=== PATIENT | female | born 1950 | race Caucasian/White ===

== ENCOUNTER 2019-09-22 15:27 | Emergency (ER) | payer MEDICARE, BC ==
--- NOTE | 2019-09-22 16:07 | ED ---
Neurological HPI - HPI Summary HPI Summary: The patient is a 69 y/o female presenting to [facility] accompanied by daughter with a chief complaint of slurred speech since last night. She has been dealing with a lot of stress over the last few days as her recently , so she hasnt been sleeping well. Last night, the patients son noticed that she had some slurred speech, and her daughter noticed today as well. Her daughter also observed a change with some difficulty processing information and motor movements while writing her name. She doesnt have any other complaints at this time. She is not in any pain. She has a history of CVAs in the past with the last one occurring in 2014. She is not currently on Plavix 2/2 thrombocytopenia and anemia. PMHx: anemia, HTN, breast cancer (sees Dr. Huerta). Nonsmoker, no EtOH , no substance use. Medications reviewed. Allergies noted. - History of Current Complaint Chief Complaint: EDNeurologicalDeficit Stated Complaint: SLURRED SPEECH PER DAUGHTER Time Seen by Provider: 09/22/19 15:59 Hx Obtained From: Patient, Family/[employer] Operator - daughter Onset/Duration: Started hours ago - last night, Still Present Timing: Sudden Onset Onset Severity: Mild Current Severity: Mild Pain Intensity: 0 Pain Scale Used: 0-10 Numeric Character: Motor Weakness, Impaired Speech, Other: - aphasia Aggravating: Stress Alleviating: Nothing Associated Signs and Symptoms: Positive: Impaired Speech. Negative: Fever Related Hx: Anticoagulants - Plavix - Additional Pertinent History Primary Care Physician: [id number] - Allergy/Home Medications Allergies/Adverse Reactions: Allergies Allergy/AdvReac Type Severity Reaction Status Date / Time Adhesive Tape Allergy Rash Verified 06/27/14 10:05 Home Medications: Home Medications Calcium Carb/Vit D3/Minerals [Calcium 600+D Plus [place]] 1 tab PO DAILY [History Confirmed 09/22/19] Multivitamins/Minerals TAB* [Theragran/minerals TAB*] 1 tab PO DAILY 09/22/19 [ History Confirmed 09/22/19] Pravastatin (NF) [Pravachol (NF)] 80 mg PO DAILY 09/22/19 [History Confirmed ] Ubidecarenone [Co Q-10] 400 mg PO DAILY 09/22/19 [History Confirmed 09/22/19] PMH/Surg Hx/FS Hx/Imm Hx Endocrine/Hematology History: Reports: Hx Anemia - ON PLAVIX Denies: Hx Diabetes Cardiovascular History: Reports: Hx Hypertension Denies: Hx Congestive Heart Failure, Hx Pacemaker/ICD Comment Only: Other Cardiovascular Problems/Disorders - H/O DEVELOPMENT OF CHF WHILE ON CHEMO PER PT. Respiratory History: Denies: Hx Chronic Obstructive Pulmonary Disease (COPD) History: Reports: Hx Kidney Infection - A YOUNG CHILD Denies: Hx Dialysis Musculoskeletal History: Denies: Hx Rheumatoid Arthritis, Hx Back Problems, Hx Osteoporosis Sensory History: Denies: Hx Contacts or Glasses, Hx Hearing Aid Opthamlomology History: Denies: Hx Contacts or Glasses Neurological History: Reports: Hx CVA - 2014 Denies: Hx Dementia, Hx Seizures, Other Neuro Impairments/Disorders Psychiatric History: Denies: Hx Panic Disorder - Cancer History Cancer Type, Location and Year: BREAST Hx Chemotherapy: Yes Hx Radiation Therapy: No - Surgical History Surgical History: Yes Surgery Procedure, Year, and Place: BILATERAL MASTECTOMY-2008. AXILLARY LYMPH NODES REMOVED LEFT SIDE. RECONSTRUCTIVE SURGERY. 25 YEARS AGO- TUBAL LIGATION , wrist fracture. Hx Anesthesia Reactions: No Infectious Disease History: No Infectious Disease History: Denies: Traveled Outside the [place] in Last 30 Days - Family History Known Family History: Positive: Hypertension - Social History Alcohol Use: None Hx Substance Use: No Substance Use Type: Reports: None Hx Tobacco Use: No Smoking Status (MU): Never Smoked Tobacco Have You Smoked in the Last Year: No Review of Systems Negative: Fever Neurological: Other - aphasia, motor changes Positive: Slurred Speech All Other Systems Reviewed And Are Negative: Yes Physical Exam - Summary Physical Exam Summary: Constitutional: Well-developed, Well-nourished, Alert. (-) Distressed Skin: Warm, Dry HENT: Normocephalic; Atraumatic Eyes: Conjunctiva normal Neck: Musculoskeletal ROM normal neck. (-) JVD, (-) Nuchal rigidity Cardio: Rhythm regular, rate normal, Heart sounds normal; Intact distal pulses; Radial pulses are 2+ and symmetric. (-) Murmur Pulmonary/Chest wall: Effort normal. (-) Respiratory distress, (-) Wheezes, (-) Rales Abd: Soft. (-) Tenderness, (-) Distension, (-) Guarding, (-) Rebound Musculoskeletal: Lymph edema of the left arm, (-) Edema of the lower extremities , Status-post mastectomy Lymph: (-) Cervical adenopathy Neuro: Alert, PERRL, Oriented x3, Strength normal, Cranial nerves II-XII are grossly intact. SILT, Strength 5/5 BUE and BLE, (-) Dysmetria, (-) Nystagmus, ambulates w steady gait. Psych: Mood and affect Normal Triage Information Reviewed: Yes Vital Signs On Initial Exam: Initial Vitals Temp Pulse Resp BP Pulse Ox 97.0 F 90 16 146/63 95 09/22/19 15:36 09/22/19 15:36 09/22/19 15:36 09/22/19 15:36 09/22/19 15:36 Vital Signs Reviewed: Yes - Throckmorton Coma Scale Best Eye Response: 4 - Spontaneous Best Motor Response: 6 - Obeys Commands Best Verbal Response: 5 - Oriented Coma Scale Total: 15 Procedures - Sedation Patient Received Moderate/Deep Sedation with Procedure: No Diagnostics - Vital Signs Vital Signs Temp Pulse Resp BP Pulse Ox 09/22/19 15:36 97.0 F 90 16 146/63 95 - Laboratory Result Diagrams: 09/22/19 16:22 09/22/19 16:22 Lab Statement: Any lab studies that have been ordered have been reviewed, and results considered in the medical decision making process. - Radiology CXR Radiology Interpretation Completed By: Radiologist Summary of Radiographic Findings: Impression: No active cardiopulmonary disease is noted. ED physician has reviewed this report. - CT Brain CT CT Interpretation Completed By: Radiologist Summary of CT Findings: Impression: Lacunar infarct right caudate nucleus and right basal ganglia. No intracranial mass or hemorrhage is noted. No changes noted since August 01, 2015. ED physician has reviewed this report. NIH Scale - NIH Scale Level of Consciousness: Alert/Keenly Responsive Ask Patient the Month and His/Her Age: Both Correct Ask Pt to Open/Close Eyes and Rest Room Maid/Release Non-Paretic Hand: Both Correctly Best Gaze (Only Horizontal Eye Movement): Normal Visual Field Testing: No Visual Loss Facial Paresis-Pt to Smile & Close Eyes or Grimace Symmetry: Normal/Symmetrical Motor Function - Right Arm: No Drift-Holds 10 Seconds Motor Function - Left Arm: No Drift-Holds 10 Seconds Motor Function - Right Leg: No Drift-Holds 10 Seconds Motor Function - Left Leg: No Drift-Holds 10 Seconds Limb Ataxia-Must be out of Proportion to Weakness Present: Absent Sensory (Use Pinprick to Test Arms/Legs/Trunk/Face): Normal Best Language (Describe Picture, Name Items): No Aphasia Dysarthria (Read Several Words): Normal Extinction and Inattention: No Abnormality Total Score: 0 Re-Evaluation - Re-Evaluation First Eval Re-Evaluation Time: 18:13 Comment: We discussed results thus far and consultation with Dr. Merrill concerning admission. She would not like to stay for further treatment. She will leave AMA. Course/Dx - Course Course Of Treatment: 69 y/o F w hx CVA, BRCA, anemia p/w slurred speech and cognitive slowing (resolved). - normal neuro exam. CT head w/o acute pathology. Patient does become hypoxic to 90% when falling asleep, daughter will follow up w PCP regarding sleep test. - regarding dysarthria and episode of confusion/slowing, d/w daughter recommendations to stay for further w/u (ie MRI, echo). Patient and daughter decline. They are both under significant stress 2/2 passing of patients . They understand that she is at risk for TIA and stroke given that she is not on plavix or aspirin due to thrombocytopenia. They are aware of the risks of leaving but wish to do so anways. I offered to do a CTA here before discharge which they decline. They will return for recurrent or worsenng symptoms and will follow up w her PCP. - Diagnoses Provider Diagnoses: Slurred speech - Physician Notifications Discussed Care Of Patient With: Sean Merrill - neurology Time Discussed With Above Provider: 18:10 Instructed by Provider To: Other - I discussed the patients case with Dr. Merrill, who recommends she stay overnight for a stroke workup including a MRI. I spoke with COLBY Cano, at 1820 from oncology, who suggests that we refrain from placing the patient on baby Aspirin as her platelets are low. Discharge ED - Sign-Out/Discharge Documenting (check all that apply): Patient Departure - Patient will leave AMA. - Discharge Plan Condition: Stable Disposition: AGAINST MEDICAL ADVICE Patient Education Materials: Transient Ischemic Attack (ED) Referrals: Teresita Serra MD [Primary Care Provider] - Sean Merrill MD [Medical Doctor] - Additional Instructions: You were seen in the emergency department for slurred speech. You possibly had a stroke. We understand you would like to leave, but if you reconsider please return to the ER. Please follow up with a neurologist. Please follow up with your primary care doctor in the next 2-3 days and return to the emergency department for new weakness/numbness, confusion worsening or concerning symptoms. It was a pleasure taking care of you today. - Billing Disposition and Condition Condition: STABLE Disposition: Against Medical Advice - Attestation Statements Document Initiated by Gutierrez: Yes Documenting Scribe: Courtney Mccabe Provider For Whom Gutierrez is Documenting (Include Credential): Dr. Kojo Flores MD Scribe Attestation: I, Courtney Mccabe, scribed for Dr. Kojo Flores MD on 09/24/19 at 1433. Scribe Documentation Reviewed: Yes Provider Attestation: The documentation as recorded by the Courtney chong accurately reflects the service I personally performed and the decisions made by me, Dr. Kojo Flores MD Status of Scribe Document: Viewed
[2019-09-22 16:31] LABS: ABS Lymphocytes 1.1 10^3/ul (1.0-4.8); ABS Monocytes 0.2 10^3/ul (0-0.8); ABS Neutrophils 1.2 10^3/ul (1.5-7.7); Eosinophil % 1.3 %; Hematocrit 24 % (35-47); Hemoglobin 7.9 g/dL (12.0-16.0); Lymphocyte % 42.3 %; Mean Corpuscular HGB Conc 33 g/dL (31-36); Mean Corpuscular Hemoglobin 28 pg (27-31); Mean Corpuscular Volume 84 fL (80-97); Mean Platelet Volume 7.6 fL (7.4-10.4); Nucleated Red Blood Cells % 0.2; Platelet Count 44 10^3/uL (150-450); Red Cell Distribution Width 23 % (10-15); White Blood Count 2.5 10^3/uL (3.5-10.8)
[2019-09-22 17:00] LABS: Albumin 4.2 g/dL (3.2-5.2); Albumin/Globulin Ratio 1.4 (1-3); Calcium 9.5 mg/dL (8.6-10.3); EGFR African American 81.8 (>60); EGFR Non-African American 67.6 (>60); Globulin 3.1 g/dL (2-4); Potassium 3.7 mmol/L (3.5-5.0); Total Bilirubin 0.4 mg/dL (0.2-1.0); Total Protein 7.3 g/dL (6.4-8.9)
[2019-09-22] MEDS ORDERED: Aspirin 81 mg CHEW TAB* 81 MG TAB.CHEW PO ONE (18:16)
[2019-09-22 18:37] VITALS: BP 113/69
== END 2019-09-22 18:29 | disposition left against medical advice (07) ==
LOC: ED 15:27
DX: R47.81 Slurred speech (principal); I10 Essential (primary) hypertension; D64.9 Anemia, unspecified; Z86.73 Personal history of transient ischemic attack (TIA), and cerebral infarction without residual deficits; Z85.3 Personal history of malignant neoplasm of breast; Z79.899 Other long term (current) drug therapy
CPT/HCPCS: 36415; 70450; 71046; 80053; 85025; 99283

== ENCOUNTER 2019-12-31 21:21 | Emergency (ER) | payer MEDICARE, BC ==
--- OUTSIDE RECORDS SUMMARY | 2019-12-31 21:34 | XMS REPORT | Continuity of Care Document ---
:1950 External Reference #:[id number] Author Name Teresita Serra M.D. (transmitted by agent of provider Monika Hoyos) Address [address] [place] [address] Care Team Providers Name Role Phone [place] MD - Hematology & Care Team Information Behavioral Health Tech [phone] Oncology Candi Oh - Power Originator Care Team Information Behavioral Health Tech [phone] [facility] - Physical Care Team Information Behavioral Health Tech Therapist Problems Active Problems Provider Date Malignant neoplasm of female breast Teresita Serra M.D. Onset: 2012 Pure hypercholesterolemia Teresita Serra M.D. Onset: 02/13/2013 Essential hypertension Teresita Serra M.D. Onset: 02/13/2013 Impaired fasting glycemia Teresita Serra M.D. Onset: 02/13/2013 Social History Type Date Description Comments Sex Unknown Tobacco Use Start: Unknown Never Smoked Cigarettes ETOH Use Occasionally consumes less than one per week alcohol Recreational Drug Use Denies Drug Use Tobacco Use Start: Unknown Patient has never smoked Seat Belt/Car Seat always uses seat belt Allergies, Adverse Reactions, Alerts Description No Known Drug Allergies Medications Active Medications SIG Qnty Indications Ordering Date Provider Irbesartan 1 by mouth everyday 30tabs Teresita Arguelles 12/23/2019 75mg for hypertension (mary ellen Serra M.D. Tablets replace lisinopril) Co Q-10 1 PO Qday Teresita Arguelles 09/26/2016 400mg Fernanda Serra Capsules Vitamin D3 2 PO Qday Teresita Arguelles 05/19/2013 1000Unit Fernanda Serra Capsules Vitamins Multiple Teresita Arguelles 11/13/2004 Fernanda Serra Tablets Calcium With 1 PO Qday Teresita Arguelles 11/13/2004 Vitamin D Fernanda Serra 600mg Pravastatin Sodium Take One Tablet By 90tabs Teresita Arguelles Mouth AT Bedtime Fernanda Serra 80mg Tablets Aspirin 81 Low Dose 1 by mouth every day Unknown 81mg Chewtabs Medications Administered in Office Medication SIG Qnty Indications Ordering Provider Date TB,Intradermal (PPD, [facility]) [facility] 06/03/2012 Injection Immunizations CPT Code Status Date Vaccine Lot # [id number] Given 05/26/2019 [place] [id number] Given 09/22/2017 Prevnar-13 Pneumococcal Conjugate Vaccine [id number] 48465 Given 05/14/2017 Influenza Virus Vaccine, Quadrivalent, 3 Yr > Quad, Preserv Free 29104 Given 09/26/2016 Tdap (Adacel) [id number] Given 05/14/2016 Influenza Virus Vaccine, Quadrivalent, 3 Yr > Quad, Preserv Free 90914 Given 06/07/2015 Influenza Virus Vaccine, Quadrivalent, 3 Yr > Quad, Preserv Free Vital Signs Date Vital Result Comment 10/08/2019 11:12am Weight 192.50 lb Weight 87.318 kg BP Systolic 118 mmHg BP Diastolic 60 mmHg Heart Rate 86 /min Body Temperature 97.6 F Respiratory Rate 16 /min Height 64 inches 5'4" BMI (Body Mass Index) 33.0 kg/m2 O2 % BldC Oximetry 95 % 06/15/2019 12:00pm Weight 203.00 lb Weight 92.081 kg BP Systolic 114 mmHg BP Diastolic 62 mmHg Heart Rate 78 /min Body Temperature 97.7 F Respiratory Rate 17 /min Height 63.5 inches 5'3.50" BMI (Body Mass Index) 35.4 kg/m2 O2 % BldC Oximetry 98 % Results Test Acquired Date Facility Test Result H/L Range Note Comp Metabolic 12/20/2019 [facility] Sodium 134 mmol/ L Low 135-145 Panel [phone] Potassium 3.7 mmol/L Normal 3.5-5.0 Chloride 99 mmol/L Low 101-111 Co2 Carbon Dioxide 25 mmol/L Normal 22-32 Anion Gap 10 mmol/L Normal 2-11 Glucose 138 mg/dL High 70-100 Blood Urea Nitrogen 19 mg/dL Normal 6-24 Creatinine 0.83 mg/dL Normal 0.51-0.95 BUN/Creatinine Ratio 22.9 High 8-20 Calcium 9.4 mg/dL Normal 8.6-10.3 Total Protein 6.9 g/dL Normal 6.4-8.9 Albumin 3.8 g/dL Normal 3.2-5.2 Globulin 3.1 g/dL Normal 2-4 Albumin/Globulin Ratio 1.2 Normal 1-3 Total Bilirubin 1.10 mg/dL High 0.2-1.0 Alkaline Phosphatase 78 U/L Normal 34-104 Alt 19 U/L Normal 7-52 Ast 22 U/L Normal 13-39 Egfr Non- 68.6 >60 Egfr 83.0 >60 1 CBC Auto 12/20/2019 [facility] White Blood 3.4 10^3/ uL Low 3.5-10.8 Diff [phone] Count Red Blood Count 2.40 10^6/uL Low 3.70-4.87 Hemoglobin 6.9 g/dL Low 12.0-16.0 Hematocrit 21 % Low 35-47 Mean Corpuscular Volume 85 fL Normal 80-97 Mean Corpuscular Hemoglobin 29 pg Normal 27-31 Mean Corpuscular HGB Conc 34 g/dL Normal 31-36 Red Cell Distribution Width 22 % High 10-15 Abs Neutrophils 2.0 10^3/uL Normal 1.5-7.7 Abs Lymphocytes 1.0 10^3/uL Normal 1.0-4.8 Abs Monocytes 0.3 10^3/uL Normal 0-0.8 Abs Eosinophils 0.0 10^3/uL Normal 0-0.6 Abs Basophils 0.0 10^3/uL Normal 0-0.2 Abs Nucleated RBC 0.0 10^3/uL Granulocyte % 60.2 % Lymphocyte % 29.8 % Monocyte % 7.8 % Eosinophil % 1.1 % Basophil % 1.1 % Nucleated Red Blood Cells % 0.8 Platelet Count 11 10^3/uL Low 150-450 2 Mean Platelet Volume 6.6 fL Low 7.4-10.4 Manual 12/20/2019 [facility] Immature 5.0 % Normal 0-9 Differential [phone] Granulocytes Neutrophil % 62.0 % Band % 3.0 % Normal 0-8 Lymphocytes % 25.0 % Monocytes % 4.0 % Eosinophils % 2.0 % Basophil % 1.0 % Variant Lymph % 1.0 % Normal 0-6 Metamyelocytes % 1.0 % Normal 0-2 Myelocytes % 1.0 % Normal 0-1 Nucleated Red Blood Cells/100 2.0 High 0-0 Anisocytosis 2+ Tear Drop Cells 2+ Elliptocyte 1+ Type & Screen 12/20/2019 [facility] Patient Blood O Positive [phone] Type Antibody Screen NEGATIVE Laboratory test 12/20/2019 [facility] Packed Cells SEE RESULTS 3 finding [phone] BELO <SEE NOTE> Comp Metabolic 11/29/2019 [facility] Sodium 135 mmol/ L Normal 135-1 Panel [phone] Potassium 3.8 mmol/L Normal 3.5-5.0 Chloride 101 mmol/L Normal 101-111 Co2 Carbon Dioxide 25 mmol/L Normal 22-32 Anion Gap 9 mmol/L Normal 2-11 Glucose 120 mg/dL High 70-100 Blood Urea Nitrogen 16 mg/dL Normal 6-24 Creatinine 0.77 mg/dL Normal 0.51-0.95 BUN/Creatinine Ratio 20.8 High 8-20 Calcium 9.9 mg/dL Normal 8.6-10.3 Total Protein 7.3 g/dL Normal 6.4-8.9 Albumin 3.8 g/dL Normal 3.2-5.2 Globulin 3.5 g/dL Normal 2-4 Albumin/Globulin Ratio 1.1 Normal 1-3 Total Bilirubin 0.50 mg/dL Normal 0.2-1.0 Alkaline Phosphatase 66 U/L Normal 34-104 Alt 17 U/L Normal 7-52 Ast 17 U/L Normal 13-39 Egfr Non- 74.8 >60 Egfr 90.5 >60 4 CBC Auto 11/29/2019 [facility] White Blood 1.8 10^3/ uL Low 3.5-10.8 Diff [phone] Count Red Blood Count 2.92 10^6/uL Low 3.70-4.87 Hemoglobin 8.3 g/dL Low 12.0-16.0 Hematocrit 25 % Low 35-47 Mean Corpuscular Volume 84 fL Normal 80-97 Mean Corpuscular Hemoglobin 28 pg Normal 27-31 Mean Corpuscular HGB Conc 34 g/dL Normal 31-36 Red Cell Distribution Width 21 % High 10-15 Platelet Count 70 10^3/uL Low 150-450 5 Mean Platelet Volume 6.7 fL Low 7.4-10.4 Abs Neutrophils 0.7 10^3/uL Low 1.5-7.7 Abs Lymphocytes 1.0 10^3/uL Normal 1.0-4.8 Abs Monocytes 0.1 10^3/uL Normal 0-0.8 Abs Eosinophils 0.0 10^3/uL Normal 0-0.6 Abs Basophils 0.0 10^3/uL Normal 0-0.2 Abs Nucleated RBC 0.0 10^3/uL Granulocyte % 38.1 % Lymphocyte % 54.0 % Monocyte % 4.8 % Eosinophil % 1.6 % Basophil % 1.5 % Nucleated Red Blood Cells % 0.8 Manual 11/29/2019 [facility] Immature 2.0 % Normal 0-9 Differential [phone] Granulocytes Neutrophil % 42.0 % Lymphocytes % 51.0 % Monocytes % 0.0 % Eosinophils % 3.0 % Basophil % 1.0 % Variant Lymph % 1.0 % Normal 0-6 Myelocytes % 2.0 % High 0-1 Nucleated Red Blood Cells/100 1.0 High 0-0 Abs Neutrophils 0.8 10^3/uL Low 1.5-7.7 Abs Lymphocytes 0.9 10^3/uL Low 1.0-4.8 Abs Monocytes 0.0 10^3/uL Normal 0-0.8 Abs Eosinophils 0.1 10^3/uL Normal 0-0.6 Abs Basophils 0.0 10^3/uL Normal 0-0.2 Anisocytosis 2+ Laboratory test 11/22/2019 [facility] Packed Cells SEE RESULTS 6 finding [phone] BELO <SEE NOTE> Type & Screen 11/22/2019 [facility] Patient Blood O Positive [phone] Type Antibody Screen NEGATIVE CBC Auto 11/22/2019 [facility] White Blood 1.5 10^3/ uL Low 3.5-10.8 Diff [phone] Count Red Blood Count 2.71 10^6/uL Low 3.70-4.87 Hemoglobin 7.6 g/dL Low 12.0-16.0 Hematocrit 23 % Low 35-47 Mean Corpuscular Volume 85 fL Normal 80-97 Mean Corpuscular Hemoglobin 28 pg Normal 27-31 Mean Corpuscular HGB Conc 33 g/dL Normal 31-36 Red Cell Distribution Width 22 % High 10-15 7 Platelet Count 82 10^3/uL Low 150-450 Mean Platelet Volume 7.3 fL Low 7.4-10.4 Abs Neutrophils 0.5 10^3/uL Low 1.5-7.7 8 Abs Lymphocytes 0.9 10^3/uL Low 1.0-4.8 Abs Monocytes 0.1 10^3/uL Normal 0-0.8 Abs Eosinophils 0.0 10^3/uL Normal 0-0.6 Abs Basophils 0.0 10^3/uL Normal 0-0.2 Abs Nucleated RBC 0.0 10^3/uL Granulocyte % 34.5 % Lymphocyte % 57.1 % Monocyte % 6.2 % Eosinophil % 1.0 % Basophil % 1.2 % Nucleated Red Blood Cells % 1.2 Comp Metabolic 11/22/2019 [facility] Sodium 136 mmol/ L Normal 135-145 Panel [phone] Potassium 4.0 mmol/L Normal 3.5-5.0 Chloride 101 mmol/L Normal 101-111 Co2 Carbon Dioxide 27 mmol/L Normal 22-32 Anion Gap 8 mmol/L Normal 2-11 Glucose 120 mg/dL High 70-100 Blood Urea Nitrogen 15 mg/dL Normal 6-24 Creatinine 0.78 mg/dL Normal 0.51-0.95 BUN/Creatinine Ratio 19.2 Normal 8-20 Calcium 10.1 mg/dL Normal 8.6-10.3 Total Protein 7.6 g/dL Normal 6.4-8.9 Albumin 3.9 g/dL Normal 3.2-5.2 Globulin 3.7 g/dL Normal 2-4 Albumin/Globulin Ratio 1.1 Normal 1-3 Total Bilirubin 0.70 mg/dL Normal 0.2-1.0 Alkaline Phosphatase 66 U/L Normal 34-104 Alt 21 U/L Normal 7-52 Ast 19 U/L Normal 13-39 Egfr Non- 73.7 >60 Egfr 89.1 >60 9 CBC Auto 11/15/2019 [facility] White Blood 1.7 10^3/ uL Low 3.5-10.8 Diff [phone] Count Red Blood Count 2.37 10^6/uL Low 3.70-4.87 Hemoglobin 6.8 g/dL Low 12.0-16.0 Hematocrit 20 % Low 35-47 Mean Corpuscular Volume 84 fL Normal 80-97 Mean Corpuscular Hemoglobin 29 pg Normal 27-31 Mean Corpuscular HGB Conc 34 g/dL Normal 31-36 Red Cell Distribution Width 22 % High 10-15 Platelet Count 47 10^3/uL Low 150-450 Mean Platelet Volume 7.8 fL Normal 7.4-10.4 Abs Neutrophils 0.6 10^3/uL Low 1.5-7.7 Abs Lymphocytes 1.0 10^3/uL Normal 1.0-4.8 Abs Monocytes 0.1 10^3/uL Normal 0-0.8 Abs Eosinophils 0.0 10^3/uL Normal 0-0.6 Abs Basophils 0.0 10^3/uL Normal 0-0.2 Abs Nucleated RBC 0.0 10^3/uL Granulocyte % 35.7 % Lymphocyte % 59.4 % Monocyte % 3.5 % Eosinophil % 0.7 % Basophil % 0.7 % Nucleated Red Blood Cells % 0.6 Manual Differential 11/15/2019 [facility] Neutrophil % 32.0 % [phone] Lymphocytes % 61.0 % Monocytes % 4.0 % Variant Lymph % 3.0 % Normal 0-6 Nucleated Red Blood Cells/100 1.0 High 0-0 Macrocytosis 1+ Microcytosis 2+ Hypochromasia 2+ Polychromasia 1+ Laboratory test 11/15/2019 [facility] Pathologist ( SEE NOTE) 10 finding [phone] Review Type & Screen 11/15/2019 [facility] Patient Blood O Positive [phone] Type Antibody Screen NEGATIVE Laboratory test 11/15/2019 [facility] Packed SEE RESULTS 11 finding [phone] Cells BELO <SEE NOTE> Comp Metabolic 11/01/2019 [facility] Sodium 136 mmol/ L Normal 135-1 Panel [phone] Potassium 3.7 mmol/L Normal 3.5-5.0 Chloride 102 mmol/L Normal 101-111 Co2 Carbon Dioxide 26 mmol/L Normal 22-32 Anion Gap 8 mmol/L Normal 2-11 Glucose 149 mg/dL High 70-100 Blood Urea Nitrogen 16 mg/dL Normal 6-24 Creatinine 0.77 mg/dL Normal 0.51-0.95 BUN/Creatinine Ratio 20.8 High 8-20 Calcium 9.6 mg/dL Normal 8.6-10.3 Total Protein 7.3 g/dL Normal 6.4-8.9 Albumin 4.0 g/dL Normal 3.2-5.2 Globulin 3.3 g/dL Normal 2-4 Albumin/Globulin Ratio 1.2 Normal 1-3 Total Bilirubin 0.50 mg/dL Normal 0.2-1.0 Alkaline Phosphatase 81 U/L Normal 34-104 Alt 15 U/L Normal 7-52 Ast 18 U/L Normal 13-39 Egfr Non- 74.8 >60 Egfr 90.5 >60 12 CBC Auto 11/01/2019 [facility] White Blood 2.5 10^3/ uL Low 3.5-10.8 Diff [phone] Count Red Blood Count 3.00 10^6/uL Low 3.70-4.87 Hemoglobin 8.7 g/dL Low 12.0-16.0 Hematocrit 25 % Low 35-47 Mean Corpuscular Volume 83 fL Normal 80-97 Mean Corpuscular Hemoglobin 29 pg Normal 27-31 Mean Corpuscular HGB Conc 35 g/dL Normal 31-36 Red Cell Distribution Width 22 % High 10-15 Platelet Count 43 10^3/uL Low 150-450 13 Mean Platelet Volume 7.9 fL Normal 7.4-10.4 Abs Neutrophils 1.2 10^3/uL Low 1.5-7.7 Abs Lymphocytes 1.2 10^3/uL Normal 1.0-4.8 Abs Monocytes 0.1 10^3/uL Normal 0-0.8 Abs Eosinophils 0.1 10^3/uL Normal 0-0.6 Abs Basophils 0.0 10^3/uL Normal 0-0.2 Abs Nucleated RBC 0.0 10^3/uL Granulocyte % 45.4 % Lymphocyte % 47.2 % Monocyte % 4.0 % Eosinophil % 2.1 % Basophil % 1.3 % Nucleated Red Blood Cells % 0.2 Laboratory test 10/25/2019 [facility] Packed Cells SEE RESULTS 14 finding [phone] BELO <SEE NOTE> Type & Screen 10/25/2019 [facility] Patient Blood O Positive [phone] Type Antibody Screen NEGATIVE CBC Auto 10/25/2019 [facility] White Blood 2.4 10^3/ uL Low 3.5-10.8 Diff [phone] Count Red Blood Count 2.59 10^6/uL Low 3.70-4.87 Hemoglobin 7.2 g/dL Low 12.0-16.0 Hematocrit 22 % Low 35-47 Mean Corpuscular Volume 84 fL Normal 80-97 Mean Corpuscular Hemoglobin 28 pg Normal 27-31 Mean Corpuscular HGB Conc 34 g/dL Normal 31-36 Red Cell Distribution Width 24 % High 10-15 15 Platelet Count 44 10^3/uL Low 150-450 16 Mean Platelet Volume 7.9 fL Normal 7.4-10.4 Abs Neutrophils 1.2 10^3/uL Low 1.5-7.7 Abs Lymphocytes 1.0 10^3/uL Normal 1.0-4.8 Abs Monocytes 0.2 10^3/uL Normal 0-0.8 Abs Eosinophils 0.0 10^3/uL Normal 0-0.6 Abs Basophils 0.0 10^3/uL Normal 0-0.2 Abs Nucleated RBC 0.0 10^3/uL Granulocyte % 50.4 % Lymphocyte % 40.5 % Monocyte % 7.2 % Eosinophil % 1.5 % Basophil % 0.4 % Nucleated Red Blood Cells % 0.2 Comp Metabolic 10/25/2019 [facility] Sodium 134 mmol/ L Low 135-145 Panel [phone] Potassium 4.0 mmol/L Normal 3.5-5.0 Chloride 99 mmol/L Low 101-111 Co2 Carbon Dioxide 28 mmol/L Normal 22-32 Anion Gap 7 mmol/L Normal 2-11 Calcium 10.0 mg/dL Normal 8.6-10.3 Albumin 4.3 g/dL Normal 3.2-5.2 Total Bilirubin 0.60 mg/dL Normal 0.2-1.0 Glucose 120 mg/dL High 70-100 Blood Urea Nitrogen 17 mg/dL Normal 6-24 Creatinine 0.76 mg/dL Normal 0.51-0.95 BUN/Creatinine Ratio 22.4 High 8-20 Total Protein 7.7 g/dL Normal 6.4-8.9 Globulin 3.4 g/dL Normal 2-4 Albumin/Globulin Ratio 1.3 Normal 1-3 Alkaline Phosphatase 83 U/L Normal 34-104 Alt 13 U/L Normal 7-52 Ast 19 U/L Normal 13-39 Egfr Non- 75.9 >60 Egfr 91.8 >60 17 CBC Auto 09/30/2019 [facility] White Blood 2.9 10^3/ uL Low 3.5-10.8 Diff [phone] Count Red Blood Count 2.92 10^6/uL Low 3.70-4.87 Hemoglobin 8.1 g/dL Low 12.0-16.0 Hematocrit 25 % Low 35-47 Mean Corpuscular Volume 85 fL Normal 80-97 Mean Corpuscular Hemoglobin 28 pg Normal 27-31 Mean Corpuscular HGB Conc 33 g/dL Normal 31-36 Red Cell Distribution Width 23 % High 10-15 18 Platelet Count 46 10^3/uL Low 150-450 19 Mean Platelet Volume 7.9 fL Normal 7.4-10.4 Abs Neutrophils 1.3 10^3/uL Low 1.5-7.7 Abs Lymphocytes 1.4 10^3/uL Normal 1.0-4.8 Abs Monocytes 0.2 10^3/uL Normal 0-0.8 Abs Eosinophils 0.0 10^3/uL Normal 0-0.6 Abs Basophils 0.0 10^3/uL Normal 0-0.2 Abs Nucleated RBC 0.0 10^3/uL Granulocyte % 43.7 % Lymphocyte % 48.5 % Monocyte % 6.2 % Eosinophil % 1.3 % Basophil % 0.3 % Nucleated Red Blood Cells % 0.2 Comp Metabolic 09/22/2019 [facility] Sodium 138 mmol/ L Normal 135-145 Panel [phone] Potassium 3.7 mmol/L Normal 3.5-5.0 Chloride 103 mmol/L Normal 101-111 Co2 Carbon Dioxide 27 mmol/L Normal 22-32 Anion Gap 8 mmol/L Normal 2-11 Glucose 120 mg/dL High 70-100 Blood Urea Nitrogen 21 mg/dL Normal 6-24 Creatinine 0.84 mg/dL Normal 0.51-0.95 BUN/Creatinine Ratio 25.0 High 8-20 Calcium 9.5 mg/dL Normal 8.6-10.3 Total Protein 7.3 g/dL Normal 6.4-8.9 Albumin 4.2 g/dL Normal 3.2-5.2 Globulin 3.1 g/dL Normal 2-4 Albumin/Globulin Ratio 1.4 Normal 1-3 Total Bilirubin 0.40 mg/dL Normal 0.2-1.0 Alkaline Phosphatase 76 U/L Normal 34-104 Alt 16 U/L Normal 7-52 Ast 24 U/L Normal 13-39 Egfr Non- 67.6 >60 Egfr 81.8 >60 20 CBC Auto 09/22/2019 [facility] White Blood 2.5 10^3/ uL Low 3.5-10.8 Diff [phone] Count Red Blood Count 2.80 10^6/uL Low 3.70-4.87 Hemoglobin 7.9 g/dL Low 12.0-16.0 Hematocrit 24 % Low 35-47 Mean Corpuscular Volume 84 fL Normal 80-97 Mean Corpuscular Hemoglobin 28 pg Normal 27-31 Mean Corpuscular HGB Conc 33 g/dL Normal 31-36 Red Cell Distribution Width 23 % High 10-15 21 Platelet Count 44 10^3/uL Low 150-450 22 Mean Platelet Volume 7.6 fL Normal 7.4-10.4 Abs Neutrophils 1.2 10^3/uL Low 1.5-7.7 Abs Lymphocytes 1.1 10^3/uL Normal 1.0-4.8 Abs Monocytes 0.2 10^3/uL Normal 0-0.8 Abs Eosinophils 0.0 10^3/uL Normal 0-0.6 Abs Basophils 0.0 10^3/uL Normal 0-0.2 Abs Nucleated RBC 0.0 10^3/uL Granulocyte % 48.4 % Lymphocyte % 42.3 % Monocyte % 7.4 % Eosinophil % 1.3 % Basophil % 0.6 % Nucleated Red Blood Cells % 0.2 Laboratory test 09/09/2019 [facility] Pathologist Review (SEE NOTE) 23 finding [phone] Cell Morphology 09/09/2019 [facility] Polychromasia 1 + [phone] Anisocytosis 2+ Tear Drop Cells 1+ CBC Auto 09/09/2019 [facility] White Blood 3.5 10^3/ uL Normal 3.5-10.8 Diff [phone] Count Red Blood Count 2.92 10^6/uL Low 3.70-4.87 Hemoglobin 8.1 g/dL Low 12.0-16.0 Hematocrit 25 % Low 35-47 Mean Corpuscular Volume 86 fL Normal 80-97 Mean Corpuscular Hemoglobin 28 pg Normal 27-31 Mean Corpuscular HGB Conc 32 g/dL Normal 31-36 Red Cell Distribution Width 23 % High 10-15 Platelet Count 45 10^3/uL Low 150-450 24 Mean Platelet Volume 7.8 fL Normal 7.4-10.4 Abs Neutrophils 1.9 10^3/uL Normal 1.5-7.7 Abs Lymphocytes 1.2 10^3/uL Normal 1.0-4.8 Abs Monocytes 0.2 10^3/uL Normal 0-0.8 Abs Eosinophils 0.1 10^3/uL Normal 0-0.6 Abs Basophils 0.0 10^3/uL Normal 0-0.2 Abs Nucleated RBC 0.0 10^3/uL Granulocyte % 54.9 % Lymphocyte % 34.1 % Monocyte % 6.1 % Eosinophil % 3.7 % Basophil % 1.2 % Nucleated Red Blood Cells % 0.1 CBC Auto 07/22/2019 [facility] White Blood 3.1 10^3/ uL Low 3.5-10.8 Diff [phone] Count Red Blood Count 2.96 10^6/uL Low 3.70-4.87 Hemoglobin 8.4 g/dL Low 12.0-16.0 Hematocrit 25 % Low 35-47 Mean Corpuscular Volume 85 fL Normal 80-97 Mean Corpuscular Hemoglobin 28 pg Normal 27-31 Mean Corpuscular HGB Conc 33 g/dL Normal 31-36 Red Cell Distribution Width 21 % High 10-15 Platelet Count 45 10^3/uL Low 150-450 Mean Platelet Volume 8.1 fL Normal 7.4-10.4 Abs Neutrophils 1.7 10^3/uL Normal 1.5-7.7 Abs Lymphocytes 1.2 10^3/uL Normal 1.0-4.8 Abs Monocytes 0.2 10^3/uL Normal 0-0.8 Abs Eosinophils 0.1 10^3/uL Normal 0-0.6 Abs Basophils 0.0 10^3/uL Normal 0-0.2 Abs Nucleated RBC 0.0 10^3/uL Granulocyte % 53.6 % Lymphocyte % 38.8 % Monocyte % 5.2 % Eosinophil % 2.0 % Basophil % 0.4 % Nucleated Red Blood Cells % 0.1 Laboratory test 07/22/2019 [facility] Erythropoietin 253 Abnormal 2.6 - 25 finding [phone] mIU/mL 18.5 Myelodysplastic 07/22/2019 [facility] FMDS Specimen Blood Syndrome,Fish [phone] FMDS Disclaimer See Comment 26 FMDS Released By See Comment 27 FMDS Reason for Referral See Comment 28 FMDS Method See Comment 29 FMDS Result See Comment 30 FMDS Result Summary Normal FMDS Result Table See Comment 31 FMDS Interpretation See Comment 32 BCR/Abl P210 07/22/2019 [facility] BCR/Abl p210 see interpretati 33 PCR [phone] Result <SEE NOTE> BCR/Abl PCR Specimen Blood BCR/Abl p210 Final Diagnosis See Comment 34 CBC Auto 07/12/2019 [facility] White Blood 3.6 10^3/ uL Normal 3.5-10.8 Diff [phone] Count Red Blood Count 3.07 10^6/uL Low 3.70-4.87 Hemoglobin 8.9 g/dL Low 12.0-16.0 Hematocrit 27 % Low 35-47 Mean Corpuscular Volume 86 fL Normal 80-97 Mean Corpuscular Hemoglobin 29 pg Normal 27-31 Mean Corpuscular HGB Conc 34 g/dL Normal 31-36 Red Cell Distribution Width 20 % High 10-15 Platelet Count 47 10^3/uL Low 150-450 35 Mean Platelet Volume 7.1 fL Low 7.4-10.4 Abs Neutrophils 1.8 10^3/uL Normal 1.5-7.7 Abs Lymphocytes 1.4 10^3/uL Normal 1.0-4.8 Abs Monocytes 0.2 10^3/uL Normal 0-0.8 Abs Eosinophils 0.1 10^3/uL Normal 0-0.6 Abs Basophils 0.0 10^3/uL Normal 0-0.2 Abs Nucleated RBC 0.0 10^3/uL Granulocyte % 50.1 % Lymphocyte % 40.2 % Monocyte % 6.7 % Eosinophil % 2.5 % Basophil % 0.5 % Nucleated Red Blood Cells % 0.2 CBC Auto 07/02/2019 [facility] Red Blood 3.07 10^6/ uL Low 3.70-4.87 Diff [phone] Count White Blood Count 3.4 10^3/uL Low 3.5-10.8 Hemoglobin 8.8 g/dL Low 12.0-16.0 Hematocrit 26 % Low 35-47 Mean Corpuscular Volume 86 fL Normal 80-97 Mean Corpuscular Hemoglobin 29 pg Normal 27-31 Mean Corpuscular HGB Conc 33 g/dL Normal 31-36 Red Cell Distribution Width 20 % High 10-15 Platelet Count 50 10^3/uL Low 150-450 36 Mean Platelet Volume 7.7 fL Normal 7.4-10.4 Abs Neutrophils 1.8 10^3/uL Normal 1.5-7.7 Abs Lymphocytes 1.2 10^3/uL Normal 1.0-4.8 Abs Monocytes 0.2 10^3/uL Normal 0-0.8 Abs Eosinophils 0.1 10^3/uL Normal 0-0.6 Abs Basophils 0.0 10^3/uL Normal 0-0.2 Abs Nucleated RBC 0.0 10^3/uL Granulocyte % 54.6 % Lymphocyte % 36.1 % Monocyte % 5.6 % Eosinophil % 3.3 % Basophil % 0.4 % Nucleated Red Blood Cells % 0.0 Retic Count 07/02/2019 [facility] Retic Count 1.1 % Normal 0.5-1.5 [phone] Mean Retic Volume 111.2 Immature Retic Fraction 0.52 RBC Retic Count 3.07 10^6/uL Low 3.70-4.87 Corrected Retic Count 0.6 % Normal 0.5-1.5 Maturation Factor Retic 2.0 Retic Index 0.30 Hematocrit for Retic CNT 26 % Low 35-47 Laboratory test 07/02/2019 [facility] Ferritin 249.6 ng/mL Normal 11-307 finding [phone] Vitamin B12 463 pg/mL Normal 180-914 37 LDH 457 U/L High 140-271 Iron & Iron 07/02/2019 [facility] Iron 100 g/dL Normal 50-212 Binding Capacity [phone] Unsaturated Iron Binding < 384 g/dL Total Iron Binding Capacity 399 g/dL Normal 250-450 Transferrin 285 mg/dL Normal 203-362 % Iron Saturation 25 % Normal 15-55 Laboratory test 07/02/2019 [facility] Beta 2 2.17 38 finding [phone] Microglobulin g/mL Protein 07/02/2019 [facility] Total 7.4 g/dL 6.3 Electrophoresis [phone] Protein(Pep) - 7.9 Albumin 3.5 g/dL 3.4-4.7 Alpha-1 Globulin 0.3 g/dL 0.1-0.3 Alpha-2 Globulin 1.1 g/dL Abnormal 0.6-1.0 Beta Globulin 1.1 g/dL 0.7-1.2 Gamma Globulin 1.5 g/dL 0.6-1.6 Albumin/Globulin Ratio 0.88 Impression See Comment 39 1 Because ethnic data is not always readily available, this report includes an eGFR for both -Americans and non- Americans. The National Kidney Disease Education Program (NKDEP) does not endorse the use of the MDRD equation for patients that are not between the ages of 18 and 70, are , have extremes of body size, muscle mass, or nutritional status, or are non- or non-. According to the National Kidney Foundation, irrespective of diagnosis, the stage of the disease is based on the level of kidney function: Stage Description GFR(mL/min/1.73 m(2)) 1 Kidney damage with normal or decreased GFR 90 2 Kidney damage with mild decrease in GFR 60-89 3 Moderate decrease in GFR 30-59 4 Severe decrease in GFR 15-29 5 Kidney failure <15 (or dialysis) 2 Platelet count confirmed by estimate 3 SEE RESULTS BELOW [id number] OP PC TRANSFUSED 12/21/19 1016 [id number] OP PC TRANSFUSED 12/21/19 1253 4 Because ethnic data is not always readily available, this report includes an eGFR for both -Americans and non- Americans. The National Kidney Disease Education Program (NKDEP) does not endorse the use of the MDRD equation for patients that are not between the ages of 18 and 70, are , have extremes of body size, muscle mass, or nutritional status, or are non- or non-. According to the National Kidney Foundation, irrespective of diagnosis, the stage of the disease is based on the level of kidney function: Stage Description GFR(mL/min/1.73 m(2)) 1 Kidney damage with normal or decreased GFR 90 2 Kidney damage with mild decrease in GFR 60-89 3 Moderate decrease in GFR 30-59 4 Severe decrease in GFR 15-29 5 Kidney failure <15 (or dialysis) 5 Consistent with Previous Results Reported on 11/22/19 6 SEE RESULTS BELOW [id number] OP PC TRANSFUSED 11/23/19 1128 7 Consistent with Previous Results Reported on 11/15/19 8 Consistent with Previous Results Reported on 11/15/19 9 Because ethnic data is not always readily available, this report includes an eGFR for both -Americans and non- Americans. The National Kidney Disease Education Program (NKDEP) does not endorse the use of the MDRD equation for patients that are not between the ages of 18 and 70, are , have extremes of body size, muscle mass, or nutritional status, or are non- or non-. According to the National Kidney Foundation, irrespective of diagnosis, the stage of the disease is based on the level of kidney function: Stage Description GFR(mL/min/1.73 m(2)) 1 Kidney damage with normal or decreased GFR 90 2 Kidney damage with mild decrease in GFR 60-89 3 Moderate decrease in GFR 30-59 4 Severe decrease in GFR 15-29 5 Kidney failure <15 (or dialysis) 10 Pancytopenia with teardrop cells. Reviewed by Norma Moulton MD 11 SEE RESULTS BELOW [id number] OP PC TRANSFUSED 11/17/19 1057 12 Because ethnic data is not always readily available, this report includes an eGFR for both -Americans and non- Americans. The National Kidney Disease Education Program (NKDEP) does not endorse the use of the MDRD equation for patients that are not between the ages of 18 and 70, are , have extremes of body size, muscle mass, or nutritional status, or are non- or non-. According to the National Kidney Foundation, irrespective of diagnosis, the stage of the disease is based on the level of kidney function: Stage Description GFR(mL/min/1.73 m(2)) 1 Kidney damage with normal or decreased GFR 90 2 Kidney damage with mild decrease in GFR 60-89 3 Moderate decrease in GFR 30-59 4 Severe decrease in GFR 15-29 5 Kidney failure <15 (or dialysis) 13 Consistent with Previous Results Reported on 10/25/19 14 SEE RESULTS BELOW [id number] OP PC TRANSFUSED 10/26/19 1313 15 Consistent with Previous Results Reported on 09/30/19 16 Consistent with Previous Results Reported on 09/30/19 17 Because ethnic data is not always readily available, this report includes an eGFR for both -Americans and non- Americans. The National Kidney Disease Education Program (NKDEP) does not endorse the use of the MDRD equation for patients that are not between the ages of 18 and 70, are , have extremes of body size, muscle mass, or nutritional status, or are non- or non-. According to the National Kidney Foundation, irrespective of diagnosis, the stage of the disease is based on the level of kidney function: Stage Description GFR(mL/min/1.73 m(2)) 1 Kidney damage with normal or decreased GFR 90 2 Kidney damage with mild decrease in GFR 60-89 3 Moderate decrease in GFR 30-59 4 Severe decrease in GFR 15-29 5 Kidney failure <15 (or dialysis) 18 Consistent with Previous Results Reported on 09/22/19 19 Consistent with Previous Results Reported on 09/22/19 20 Because ethnic data is not always readily available, this report includes an eGFR for both -Americans and non- Americans. The National Kidney Disease Education Program (NKDEP) does not endorse the use of the MDRD equation for patients that are not between the ages of 18 and 70, are , have extremes of body size, muscle mass, or nutritional status, or are non- or non-. According to the National Kidney Foundation, irrespective of diagnosis, the stage of the disease is based on the level of kidney function: Stage Description GFR(mL/min/1.73 m(2)) 1 Kidney damage with normal or decreased GFR 90 2 Kidney damage with mild decrease in GFR 60-89 3 Moderate decrease in GFR 30-59 4 Severe decrease in GFR 15-29 5 Kidney failure <15 (or dialysis) 21 Consistent with Previous Results Reported on 09/09/19 22 Consistent with Previous Results Reported on 09/09/19 23 Normocytic anemia. Marked thrombocytopenia. No evidence of a hemolytic process. Reviewed by Norma Moulton MD 24 Consistent with Previous Results Reported on 07/22/19 25 Test Performed by: [facility] [address] [place] [address] Oil Paint Shader: Jus Valdez M.D. Ph.D.; CLIA# [id number] 26 Applicable to Analyte Specific Reagent (ASR) and Laboratory Developed Tests (LDT). This test was developed and its performance characteristics determined by [facility] in a manner consistent with CLIA requirements. It has not been cleared or approved by the U.S. Food and Drug Administration. This FISH test does not rule out other chromosome abnormalities. 27 RESULT: Vanessa Woodruff M.D. Test Performed by: [facility] [place] [address] Oil Paint Shader: Jus Valdez M.D. Ph.D.; CLIA# [id number] 28 RESULT: Chronic myeloproliferative disease. d47.1 29 Locus and probes [Strategy;#Nuclei;Class] 3q21(RPN1),3q26.2(MECOM) [DFISH;500;LDT] 5p15.2(Y3F292),5q31(EGR1) [COPY#;200;ASR] 7CEN(D7Z1),7q31(E7C737) [COPY#;200;ASR] 8CEN(D8Z2),8q24.1(MYC) [COPY#;200;ASR] 11q23(5'MLL[KMT2A],3'MLL[KMT2A]) [BAP;200;ASR] 17p13(TP53),17CEN(D17Z1) [COPY#;200;ASR] 20q12(R41G566),20qter [COPY#;200;ASR] Probe strategies include: DFISH=dual color, double fusion; BAP=break-apart probe; COPY#=region gain and loss. 30 RESULT: Interphase FISH is normal for all loci studied. 31 Abnormality Name Result Abn% Cutoff% inv(3) RPN1/MECOM fusion Normal <0.6 -5q31(Q2N463s2,EGR1x1) Normal <9.5 -5(A2K391,EGR1)x1 Normal <3.5 -7q31(D7Z1x2,M1A599a4) Normal <4.5 -7(D7Z1,P0P533)x1 Normal <3.5 +8(D8Z2,MYC)x3 Normal <2.5 11q23(MLL sep) Normal <4.0 -17p13.1(TP53x1,N49H2k2) Normal <9.5 -17(TP53,D17Z1)x1 Normal <5.5 -20q12(L67D285j2,18dnayk1) Normal <9.5 32 RESULT: This result is within normal limits for the MDS FISH panel. 33 see interpretation PDF Report available at: [email or web address] 34 Peripheral blood, BCR/ABL1 mRNA level analysis (p210 fusion form): Negative. No BCR/ABL1 p210 mRNA transcripts were detected (%BCR/ABL1(p210):ABL1=0). NOTE: Please correlate this result with the original (diagnostic) BCR-ABL1 mRNA transcript type identified in this patient to ensure that the ordered test is correct and appropriate for the clinical indication. This assay specifically detects the p210 (e13a2 or e14a2) BCR-ABL1 transcript isoform. It does not detect the BCR-ABL1 p190 (e1-a2) transcript (prevalent in B-lymphoblastic leukemia, but may also rarely occur in chronic myeloid leukemia) or other rare BCR-ABL1 transcript isoforms. Signing Pathologist: Sean Mcgill M.D. ADDITIONAL INFORMATION Method summary - BCR/ABL1, p210 fusion: The BCR/ABL1 transcript level was evaluated using a quantitative, reverse truck service manager PCR. The analytical sensitivity of this assay has been determined at 0.003% (MR 4.5). This assay detects the major breakpoint region-associated common fusion mRNA forms in chronic myelogenous leukemia (e13/a2 and e14/a2), which code for a p210 protein. It is intended for monitoring patients with hematopoietic neoplasms known to carry the p210 fusion form. The assay does not detect other BCR/ABL1 mRNA types, including the e1/a2 transcript (p190 protein) that is commonly present in acute lymphoblastic leukemia. This assay is not intended for use in the diagnostic setting, as it does not detect all BCR/ABL1 mRNA fusion forms. If this has been performed in a diagnostic setting and the result is negative, test: BADX (BCR/ABL mRNA Detection, RT-PCR, Qualitative, Diagnostic) should be ordered to evaluate for all possible fusion forms. Please contact the [facility] at [phone] with questions or if additional testing is required. See the [facility] Interpretive Handbook for method details. The reproducibility of this assay is such that results within 0.5 log should be considered equivalent. Trends in the level of BCR/ABL1 mRNA should be followed carefully and clinically significant changes in BCR/ABL1 mRNA levels during tyrosine kinase inhibitor (TKI) therapy may indicate the presence of acquired BCR/ABL1 kinase domain mutations, which can be further evaluated using the BCR/ABL KDM assay (test: BAKDM). This test was developed and its performance characteristics determined by [facility] in a manner consistent with CLIA requirements. This test has not been cleared or approved by the U.S. Food and Drug Administration. Test Performed by: [facility] - [address] [address] Oil Paint Shader: Jus Valdez M.D. Ph.D.; CLIA# [id number] 35 Consistent with Previous Results Reported on 07/02/19 36 Consistent with Previous Results Reported on 06/23/19 37 Normal Range 180 to 914 Indeterminate Range 145 to 180 Deficient Range <145 38 REFERENCE VALUE 1.21 - 2.70 Test Performed by: [place] [address] Oil Paint Shader: Jus Valdez M.D. Ph.D.; CLIA# [id number] RESULT: No apparent monoclonal protein on serum electrophoresis. Test Performed by: [place] [address] Oil Paint Shader: Jus Valdez M.D. Ph.D.; CLIA# [id number] Procedures Date Code Description Status 11/06/2017 42331405 Colonoscopy Completed Medical Devices Description No Information Available Encounters Type Date Location Provider Dx Diagnosis Office Visit 12/23/2019 12:15p Main Office Teresita Serra M.D. R05 Cough I10 Essential (primary) hypertension Office Visit 10/08/2019 11:15a Main Office Teresita Arguelles I67.9 Cerebrovascular Fernanda Serra disease, unspecified G47.8 Other sleep disorders Assessments Date Code Description Provider 12/23/2019 R05 Cough Teresita Serra M.D. 12/23/2019 I10 Essential (primary) hypertension Teresita Serra M.D. 10/08/2019 I67.9 Cerebrovascular disease, unspecified Teresita Serra M.D. 10/08/2019 G47.8 Other sleep disorders Teresita Serra M.D. Plan of Treatment 12/23/2019 - Juan R Soliz CoughFollow up:.Recommendations:-- LISINOPRIL (ANGIOTENSIN CONVERTING ENZYME INHIBITOR/ NORA INHIBITOR) CAN CAUSE A DRY COUGH- I AM NOT SURE IF THAT IS WHAT IS CAUSING YOUR COUGH BUT IT IS WORTH TRYING OFF THE LISINORPIL TO SEE. -- YOU CAN STOP THE LISINOPRIL AND SWITCH TO IRBESARTAN (ANGIOTENSIN RECEPTOR HUMBERTO/ ARB) 75 MG 1 PER DAY INSTEAD. THIS MEDICINE HAS SIMILAR BENEFITS AND BLOOD PRESSURE EFFECTS AND DOES NOT TYPICALLY CAUSE THE DRY COUGH --YOUR COUGH SHOULD RESOLVE IN 1-2 WEEKS IF FROM LISINOPRIL -- IF YOU CONTINUE TO HAVE A COUGH OR WORSENING OR SHORT OF BREATH OR CONCERNS, LET ME KNOW AND, IT WAS GOOD SEEING YOU TODAY, EVEN IF FROM AFAR!I10 Essential (primary) hypertension Functional Status Description No Information Available Mental Status Description No Information Available Referrals Refer to Dr Reason for Referral Status Appt Date [facility] REFER SLEEP CLINIC CONSULT ON SLEEP APNEA, HYPOXIA Scheduled 12/02/2019 WHEN SLEEPING. - - Please contact Pt to schedule appt. - - Please fax appointment date/time to [facility], [phone]. [address] [place] [address], [address] [address] [phone]
--- OUTSIDE RECORDS SUMMARY | 2019-12-31 21:34 | XMS REPORT | Continuity of Care Document ---
:1950 External Reference #:[id number] Author Name [facility] (transmitted by agent of provider Norma Herndon) Address [address] [facility] [facility] [address] [place] [address] Care Team Providers Name Role Phone Teresita Serra MD - Family Care Team Information Telemarketer [phone] Medicine Padma Bautista MD - Neurology Care Team Information Telemarketer Problems Active Problems Provider Date Ischemic stroke Padma Bautista M.D. Onset: 08/08/2015 Note: 11/2011: Right Basal Ganglion 07/2015: Right Thalamic (treated with TPA, followed by initial double platelet therapy) Cerebral artery occlusion Susie Addison M.D. Onset: 09/19/2015 Pure hypercholesterolemia Susie Addison M.D. Onset: 09/19/2015 Essential hypertension Susie Addison M.D. Onset: 09/19/2015 Mixed hyperlipidemia Susie Addison M.D. Onset: 01/29/2016 Paroxysmal supraventricular tachycardia Ssuie Addison M.D. Onset: 04/18/2016 Paroxysmal ventricular tachycardia Susie Addison M.D. Onset: 04/18/2016 Disturbance in sleep behavior Xiomara Marie MD Onset: 05/10/2016 Obesity Xiomara Marie MD Onset: 05/10/2016 Obstructive sleep apnea syndrome Xiomara Marie MD Onset: 06/18/2016 Social History Type Date Description Comments Sex Unknown Tobacco Use Start: Unknown Never Smoked Cigarettes Smoking Status Reviewed: 10/29/19 Never Smoked Cigarettes ETOH Use Drinks 1 Alcoholic Beverage Per Week Tobacco Use Start: Unknown Patient has never smoked Recreational Drug Use Denies Drug Use Exercise Type/Frequency Exercises rarely Allergies, Adverse Reactions, Alerts Active Allergies Reaction Severity Comments Date NKDA 05/12/2014 Latex Urticaria Severe 06/14/2015 Adhesive Tape Red,rashy skin 05/10/2016 Medications Active Medications SIG Qnty Indications Ordering Provider Date Calcium 600/Vit D-3 1 by mouth bid Unknown 05/09/2016 600mg-800Iu Tablets Pravastatin Sodium take 1 by mouth 90tabs [place], 08/08/2015 80mg every night M.D. Tablets Plavix take 1 po qday 30tabs Padma Bautista, 11/04/2012 75mg Tablets M.D. Lisinopril 1 tab po daily Unknown 20mg Tab Vitamin D3 1 by mouth Unknown 2000Unit every day Capsules Multivitamins 1 by mouth Unknown Capsules every day Coq-10 1 by mouth Unknown 200mg Capsules every day Medications Administered in Office Medication SIG Qnty Indications Ordering Provider Date Technetium TC 99M Cj Kalyan Silver M.D., 05/07/2016 Tetrofosmin, Per Unit Dose FACC, FASNC Up To 40 Millicuries Injection Immunizations Description No Information Available Vital Signs Date Vital Result Comment 10/29/2019 10:30am Height 64 inches 5'4" Weight 192.75 lb Heart Rate 76 /min BP Systolic Sitting 130 mmHg BP Diastolic Sitting 73 mmHg BMI (Body Mass Index) 33.1 kg/m2 08/12/2016 9:45am Height 64 inches 5'4" Weight 203.00 lb Heart Rate 64 /min BP Systolic Sitting 126 mmHg BP Diastolic Sitting 82 mmHg Respiratory Rate 14 /min BMI (Body Mass Index) 34.8 kg/m2 Results Description No Information Available Procedures Date Code Description Status 11/16/2019 79995 ECHO Transthoracic, Real-Time 2D With Doppler And Color Completed Flow 11/16/2019 19345 ECHO Transthoracic, Real-Time 2D With Doppler And Color Completed Flow 11/14/2017 85173515 Colonoscopy Completed Medical Devices Description No Information Available Encounters Type Date Location Provider Dx Diagnosis Office Visit 10/29/2019 [facility] Sean Merrill D46.9 Myelodysplastic 10:45a Clinic MD syndrome, unspecified 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 syndrome, unspecified AT [place] Z85.3 Personal history of malignant neoplasm of breast Z17.0 Estrogen receptor positive status [ER+] Assessments Date Code Description Provider 11/16/2019 I63.9 Cerebral infarction, unspecified Evelyn Padilla M.D. 11/16/2019 I63.9 Cerebral infarction, unspecified [facility] 11/16/2019 D46.9 Myelodysplastic syndrome, unspecified Evelyn Padilla M.D. 11/16/2019 D46.9 Myelodysplastic syndrome, unspecified [facility] Schedule 11/16/2019 Z85.3 Personal history of malignant neoplasm Evelyn Padilla M.D. of breast 11/16/2019 Z85.3 Personal history of malignant neoplasm [facility] Schedule of breast 11/16/2019 Z86.73 Personal history of transient ischemic Evelyn Padilla M.D. attack (TIA), and cerebral infarction without residual deficits 11/16/2019 Z86.73 Personal history of transient ischemic [facility] Schedule attack (TIA), and cerebral infarction without residual deficits 10/29/2019 D46.9 Myelodysplastic syndrome, unspecified Sean Merrill MD 10/29/2019 I69.328 Other speech and language deficits Sean Merrill MD following cerebral infarction 07/21/2019 D46.9 Myelodysplastic syndrome, unspecified [place] M.D. 07/21/2019 Z85.3 Personal history of malignant neoplasm [place] M.D. of breast 07/21/2019 Z17.0 Estrogen receptor positive status [place] M.D. [ER+] Plan of Treatment Future Appointment(s):12/01/2019 10:00 am - Sean Merrill MD at [id number]/02/2019 11:00 am - Xiomara Marie MD at [facility]10/29/2019 - Sean Merrill, MDD46.9 Myelodysplastic syndrome, [id number] Other speech and language deficits following cerebral infarction Functional Status Description No Information Available Mental Status Description No Information Available Referrals Description No Information Available
--- OUTSIDE RECORDS SUMMARY | 2019-12-31 21:34 | XMS REPORT | Continuity of Care Document ---
:1950 External Reference #:[id number] Author Name Sean Merrill MD (transmitted by agent of provider Luz Chakraborty) Address [address] [facility], [place] [address] Care Team Providers Name Role Phone Teresita Serra MD - Family Care Team Information Fire Management Technician [phone] Medicine Padma Bautista MD - Neurology Care Team Information Fire Management Technician Problems Active Problems Provider Date Ischemic stroke Padma Bautista M.D. Onset: 08/08/2015 Note: 11/2011: Right Basal Ganglion 07/2015: Right Thalamic (treated with TPA, followed by initial double platelet therapy) Cerebral artery occlusion Susie Addison M.D. Onset: 09/19/2015 Pure hypercholesterolemia Susie Addison M.D. Onset: 09/19/2015 Essential hypertension Susie Addison M.D. Onset: 09/19/2015 Mixed hyperlipidemia Susie Addison M.D. Onset: 01/29/2016 Paroxysmal supraventricular tachycardia Susie Addison M.D. Onset: 04/18/2016 Paroxysmal ventricular tachycardia [...] [place], 08/08/2015 80mg every night M.D. Tablets Lisinopril 1 tab po daily Unknown 20mg Tab Vitamin D3 1 by mouth Unknown 2000Unit every day Capsules Multivitamins 1 by mouth Unknown Capsules every day Coq-10 1 by mouth Unknown 200mg Capsules every day Medications Administered in Office Medication SIG Qnty Indications Ordering Provider Date Technetium TC 99M Cj Silver M.D., 05/07/2016 Tetrofosmin, Per Unit Dose [...] Available Procedures Date Code Description Status 11/16/2019 27239 ECHO Transthoracic, Real-Time 2D With Doppler And Color Completed Flow 11/16/2019 97350 ECHO Transthoracic, Real-Time 2D With Doppler And Color Completed Flow 11/14/2017 [id number] Colonoscopy Completed Medical Devices Description No Information Available Encounters Type Date Location Provider Dx Diagnosis Office Visit 12/02/2019 [facility] Sean Merrill, R94.02 Abnormal brain 2:15p [facility] scan Z86.73 Prsnl hx of TIA (TIA), and cereb infrc w/o resid deficits Office 10/29/2019 Neurohospitalist Sean D46.9 Myelodysplastic Visit 10:45a Clinic MD Desirae syndrome, unspecified 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 [ER+] Plan of Treatment No Information Available Functional Status Description No Information Available Mental Status Description No Information Available Referrals Description No Information Available
--- OUTSIDE RECORDS SUMMARY | 2019-12-31 21:34 | XMS REPORT | Continuity of Care Document ---
:1950 External Reference #:[id number] Author Name Teresita Serra M.D. Address [address] [place] [address] Care Team Providers Name Role Phone New Huerta MD - Hematology & Care Team Information Health Information Provider [phone] Oncology Padma Bautista MD - Neurology Care Team Information Health Information Provider [phone] Candi Oh - Mill Tender Second Operator Care Team Information Health Information Provider [phone] [facility] - Physical Care Team Information Health Information Provider Therapist Problems Active Problems Provider Date Malignant [...] CPT Code Status Date Vaccine Lot # [id number] Given 05/26/2019 [place] [id number] Given 09/22/2017 Prevnar-13 Pneumococcal Conjugate Vaccine [id number] Given 05/14/2017 Influenza Virus Vaccine, Quadrivalent, 3 Yr > Quad, Preserv Free 03697 Given 09/26/2016 Tdap (Adacel) [id number] Given 05/14/2016 Influenza Virus Vaccine, Quadrivalent, 3 Yr > Quad, Preserv Free 85213 Given 06/07/2015 Influenza Virus Vaccine, Quadrivalent, 3 [...] Result H/L Range Note Comp Metabolic 12/20/2019 [facility] Sodium 134 mmol/ L Low 135-145 Panel [phone] Potassium 3.7 mmol/L Normal 3.5-5.0 Chloride 99 [...] Egfr 83.0 >60 1 CBC Auto 12/20/2019 [facility] White Blood 3.4 10^3/ uL Low 3.5-10.8 Diff [phone] Count Red Blood Count 2.40 10^6/uL Low [...] Volume 6.6 fL Low 7.4-10.4 Manual 12/20/2019 [facility] Immature 5.0 % Normal 0-9 Differential [phone] Granulocytes Neutrophil % 62.0 % Band % [...] 2+ Elliptocyte 1+ Type & Screen 12/20/2019 [facility] Patient Blood O Positive [phone] Type Antibody Screen NEGATIVE Laboratory test 12/20/2019 [facility] Packed Cells SEE RESULTS 3 finding [phone] BELO <SEE NOTE> Comp Metabolic 11/29/2019 [facility] Sodium 135 mmol/ L Normal 135-1 Panel [phone] Potassium 3.8 mmol/L Normal 3.5-5.0 Chloride [...] Egfr 90.5 >60 4 CBC Auto 11/29/2019 [facility] White Blood 1.8 10^3/ uL Low 3.5-10.8 Diff [phone] Count Red Blood Count 2.92 10^6/uL Low [...] Red Blood Cells % 0.8 Manual 11/29/2019 [facility] Immature 2.0 % Normal 0-9 Differential [phone] Granulocytes Neutrophil % 42.0 % Lymphocytes % [...] Normal 0-0.2 Anisocytosis 2+ Laboratory test 11/22/2019 [facility] Packed Cells SEE RESULTS 6 finding [phone] BELO <SEE NOTE> Type & Screen 11/22/2019 [facility] Patient Blood O Positive [phone] Type Antibody Screen NEGATIVE CBC Auto 11/22/2019 [facility] White Blood 1.5 10^3/ uL Low 3.5-10.8 Diff [phone] Count Red Blood Count 2.71 10^6/uL Low [...] Blood Cells % 1.2 Comp Metabolic 11/22/2019 [facility] Sodium 136 mmol/ L Normal 135-145 Panel [phone] Potassium 4.0 mmol/L Normal 3.5-5.0 Chloride 101 [...] Egfr 89.1 >60 9 CBC Auto 11/15/2019 [facility] White Blood 1.7 10^3/ uL Low 3.5-10.8 Diff [phone] Count Red Blood Count 2.37 10^6/uL Low [...] Blood Cells % 0.6 Manual Differential 11/15/2019 [facility] Neutrophil % 32.0 % [phone] Lymphocytes % 61.0 % Monocytes % 4.0 % Variant Lymph % 3.0 % Normal 0-6 Nucleated Red Blood Cells/100 1.0 High 0-0 Macrocytosis 1+ Microcytosis 2+ Hypochromasia 2+ Polychromasia 1+ Laboratory test 11/15/2019 [facility] Pathologist ( SEE NOTE) 10 finding [phone] Review Type & Screen 11/15/2019 [facility] Patient Blood O Positive [phone] Type Antibody Screen NEGATIVE Laboratory test 11/15/2019 [facility] Packed SEE RESULTS 11 finding [phone] Cells BELO <SEE NOTE> Comp Metabolic 11/01/2019 [facility] Sodium 136 mmol/ L Normal 135-1 Panel [phone] Potassium 3.7 mmol/L Normal 3.5-5.0 Chloride [...] Egfr 90.5 >60 12 CBC Auto 11/01/2019 [facility] White Blood 2.5 10^3/ uL Low 3.5-10.8 Diff [phone] Count Red Blood Count 3.00 10^6/uL Low [...] Blood Cells % 0.2 Laboratory test 10/25/2019 [facility] Packed Cells SEE RESULTS 14 finding [phone] BELO <SEE NOTE> Type & Screen 10/25/2019 [facility] Patient Blood O Positive [phone] Type Antibody Screen NEGATIVE CBC Auto 10/25/2019 [facility] White Blood 2.4 10^3/ uL Low 3.5-10.8 Diff [phone] Count Red Blood Count 2.59 10^6/uL Low [...] Blood Cells % 0.2 Comp Metabolic 10/25/2019 [facility] Sodium 134 mmol/ L Low 135-145 Panel [phone] Potassium 4.0 mmol/L Normal 3.5-5.0 Chloride 99 [...] Egfr 91.8 >60 17 CBC Auto 09/30/2019 [facility] White Blood 2.9 10^3/ uL Low 3.5-10.8 Diff [phone] Count Red Blood Count 2.92 10^6/uL Low [...] Blood Cells % 0.2 Comp Metabolic 09/22/2019 [facility] Sodium 138 mmol/ L Normal 135-145 Panel [phone] Potassium 3.7 mmol/L Normal 3.5-5.0 Chloride 103 [...] Egfr 81.8 >60 20 CBC Auto 09/22/2019 [facility] White Blood 2.5 10^3/ uL Low 3.5-10.8 Diff [phone] Count Red Blood Count 2.80 10^6/uL Low [...] Blood Cells % 0.2 Laboratory test 09/09/2019 [facility] Pathologist Review (SEE NOTE) 23 finding [phone] Cell Morphology 09/09/2019 [facility] Polychromasia 1 + [phone] Anisocytosis 2+ Tear Drop Cells 1+ CBC Auto 09/09/2019 [facility] White Blood 3.5 10^3/ uL Normal 3.5-10.8 Diff [phone] Count Red Blood Count 2.92 10^6/uL Low [...] Blood Cells % 0.1 CBC Auto 07/22/2019 [facility] White Blood 3.1 10^3/ uL Low 3.5-10.8 Diff [phone] Count Red Blood Count 2.96 10^6/uL Low [...] Blood Cells % 0.1 Laboratory test 07/22/2019 [facility] Erythropoietin 253 Abnormal 2.6 - 25 finding [phone] mIU/mL 18.5 Myelodysplastic 07/22/2019 [facility] FMDS Specimen Blood Syndrome,Fish [phone] FMDS Disclaimer See Comment 26 FMDS Released By See Comment 27 FMDS Reason for Referral See Comment 28 FMDS Method See Comment 29 FMDS Result See Comment 30 FMDS Result Summary Normal FMDS Result Table See Comment 31 FMDS Interpretation See Comment 32 BCR/Abl P210 07/22/2019 [facility] BCR/Abl p210 see interpretati 33 PCR [phone] Result <SEE NOTE> BCR/Abl PCR Specimen Blood BCR/Abl p210 Final Diagnosis See Comment 34 CBC Auto 07/12/2019 [facility] White Blood 3.6 10^3/ uL Normal 3.5-10.8 Diff [phone] Count Red Blood Count 3.07 10^6/uL Low [...] Blood Cells % 0.2 CBC Auto 07/02/2019 [facility] Red Blood 3.07 10^6/ uL Low 3.70-4.87 Diff [phone] Count White Blood Count 3.4 10^3/uL Low [...] Blood Cells % 0.0 Retic Count 07/02/2019 [facility] Retic Count 1.1 % Normal 0.5-1.5 [phone] Mean Retic Volume 111.2 Immature Retic Fraction 0.52 RBC Retic Count 3.07 10^6/uL Low 3.70-4.87 Corrected Retic Count 0.6 % Normal 0.5-1.5 Maturation Factor Retic 2.0 Retic Index 0.30 Hematocrit for Retic CNT 26 % Low 35-47 Laboratory test 07/02/2019 [facility] Ferritin 249.6 ng/mL Normal 11-307 finding [phone] Vitamin B12 463 pg/mL Normal 180-914 37 LDH 457 U/L High 140-271 Iron & Iron 07/02/2019 [facility] Iron 100 g/dL Normal 50-212 Binding Capacity [phone] Unsaturated Iron Binding < 384 g/dL Total Iron Binding Capacity 399 g/dL Normal 250-450 Transferrin 285 mg/dL Normal 203-362 % Iron Saturation 25 % Normal 15-55 Laboratory test 07/02/2019 [facility] Beta 2 2.17 38 finding [phone] Microglobulin g/mL Protein 07/02/2019 [facility] Total 7.4 g/dL 6.3 Electrophoresis [phone] Protein(Pep) - 7.9 Albumin 3.5 g/dL 3.4-4.7 [...] confirmed by estimate 3 SEE RESULTS BELOW [id number] OP PC TRANSFUSED 12/21/19 1016 [id number] OP PC TRANSFUSED 12/21/19 1253 4 Because [...] Reported on 11/22/19 6 SEE RESULTS BELOW [id number] OP PC TRANSFUSED 11/23/19 1128 7 Consistent [...] Norma Moulton MD 11 SEE RESULTS BELOW [id number] OP PC TRANSFUSED 11/17/19 1057 12 Because [...] Reported on 10/25/19 14 SEE RESULTS BELOW [id number] OP PC TRANSFUSED 10/26/19 1313 15 Consistent [...] Reported on 07/22/19 25 Test Performed by: [facility] [address] [place] [address] Vocational Rehabilitation Counselor: Jus Valdez M.D. Ph.D.; CLIA# [id number] 26 Applicable to Analyte Specific Reagent (ASR) and Laboratory Developed Tests (LDT). This test was developed and its performance characteristics determined by [facility] in a manner consistent with CLIA requirements. It has not been cleared or approved by the U.S. Food and Drug Administration. This FISH test does not rule out other chromosome abnormalities. 27 RESULT: Vanessa Woodruff M.D. Test Performed by: [facility] [place] [address] Vocational Rehabilitation Counselor: Jus Valdez M.D. Ph.D.; CLIA# [id number] 28 RESULT: Chronic myeloproliferative disease. d47.1 29 Locus and probes [Strategy;#Nuclei;Class] 3q21(RPN1),3q26.2(MECOM) [DFISH;500;LDT] 5p15.2(Y3N080),5q31(EGR1) [COPY#;200;ASR] 7CEN(D7Z1),7q31(N0S145) [COPY#;200;ASR] 8CEN(D8Z2),8q24.1(MYC) [COPY#;200;ASR] 11q23(5'MLL[KMT2A],3'MLL[KMT2A]) [BAP;200;ASR] 17p13(TP53),17CEN(D17Z1) [COPY#;200;ASR] 20q12(A70R397),20qter [COPY#;200;ASR] Probe strategies include: DFISH=dual color, double fusion; BAP=break-apart probe; COPY#=region gain and loss. 30 RESULT: Interphase FISH is normal for all loci studied. 31 Abnormality Name Result Abn% Cutoff% inv(3) RPN1/MECOM fusion Normal <0.6 -5q31(J5X084v4,EGR1x1) Normal <9.5 -5(X5X727,EGR1)x1 Normal <3.5 -7q31(D7Z1x2,G4W266q9) Normal <4.5 -7(D7Z1,A8A423)x1 Normal <3.5 +8(D8Z2,MYC)x3 Normal <2.5 11q23(MLL sep) Normal <4.0 -17p13.1(TP53x1,S30F4q1) Normal <9.5 -17(TP53,D17Z1)x1 Normal <5.5 -20q12(N89H479r8,29dsufa0) Normal <9.5 32 RESULT: This result is within normal limits for the MDS FISH panel. 33 see interpretation PDF Report available at: [email or web address] 34 Peripheral blood, BCR/ABL1 mRNA level analysis [...] level was evaluated using a quantitative, reverse multicultural manager PCR. The analytical sensitivity of this [...] all possible fusion forms. Please contact the [facility] at [phone] with questions or if additional testing is required. See the [facility] Interpretive Handbook for method details. The [...] developed and its performance characteristics determined by [facility] in a manner consistent with CLIA requirements. This test has not been cleared or approved by the U.S. Food and Drug Administration. Test Performed by: [facility] - [address] [address] Vocational Rehabilitation Counselor: Jus Valdez M.D. Ph.D.; CLIA# [id number] 35 Consistent with Previous Results Reported on 07/02/19 36 Consistent with Previous Results Reported on 06/23/19 37 Normal Range 180 to 914 Indeterminate Range 145 to 180 Deficient Range <145 38 REFERENCE VALUE 1.21 - 2.70 Test Performed by: [place] [address] Vocational Rehabilitation Counselor: Jus Valdez M.D. Ph.D.; CLIA# [id number] RESULT: No apparent monoclonal protein on serum electrophoresis. Test Performed by: [facility] [place] [address] Vocational Rehabilitation Counselor: Jus Valdez M.D. Ph.D.; CLIA# [id number] Procedures Date Code Description Status 11/06/2017 [id number] Colonoscopy Completed Medical Devices Description No Information Available Encounters Type Date Location Provider Dx Diagnosis Office Visit 10/08/2019 Main Office Teresita [id number] Cerebrovascular disease, 11:15a Fernanda Serra unspecified G47.8 Other sleep disorders Assessments Date Code Description Provider 12/23/2019 R05 Cough Teresita Serra M.D. 12/23/2019 I10 Essential (primary) hypertension Teresita Serra M.D. 10/08/2019 I67.9 Cerebrovascular disease, unspecified Teresita Serra M.D. 10/08/2019 G47.8 Other sleep disorders Teresita Serra M.D. Plan of Treatment 12/23/2019 - Teresita Serra M.D.R05 CoughFollow up:.I10 Essential (primary ) hypertension Functional Status Description No Information Available Mental Status Description No Information Available Referrals Refer to Reason for Referral Status Appt Date [facility] REFER SLEEP CLINIC CONSULT ON SLEEP APNEA, HYPOXIA Scheduled 12/02/2019 WHEN SLEEPING. - - Please contact Pt to schedule appt. - - Please fax appointment date/time to [facility], [phone]. [phone] [facility], [address] [place] [address] [phone]
--- NOTE | 2019-12-31 21:42 | ED ---
Altered Mental Status - HPI Summary HPI Summary: This pt is a 69 Y/O F presenting to [facility] with a CC of weakness that began today. She is currently treated by Dr. Garner for blood cancer per he daughter. She states that she has an injection in her stomach every week for a couple months. She states that she has not been eating well. Her daughter states that she has a decreased platelet count and blood count. The pt states that she has been increasingly forgetful since the onset. She denies any headaches, SOB, CP, fevers, chills, nausea, vomiting, hematuria, and dysuria. She did not state any aggravating or alleviating factors. 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 - History Of Current Complaint Chief Complaint: EDWeakness Stated Complaint: ABNORMAL LABS PER DAUGHTER Time Seen by Provider: 12/31/19 21:26 Hx Obtained From: Patient Last Known Well Date: unk Onset/Duration: Unknown Timing: Constant Severity Initially: Moderate Severity Currently: Moderate Character: Lethargy Aggravating Factor(s): Unknown, Other - daughter states the pt has had decreased platelet count and blood count Alleviating Factor(s): Nothing Associated Signs And Symptoms: Positive: Negative - SOB, CP, fevers, chills, hematuria, and dysuria, Weakness. Negative: Nausea, Vomiting, Fever, Headache - Allergies/Home Medications Allergies/Adverse Reactions: Allergies Allergy/AdvReac Type Severity Reaction Status Date / Time Adhesive Tape Allergy Rash Verified 12/31/19 21:40 Home Medications: Home Medications Cholecalciferol (Vitamin D3) [Vitamin D3] 2,000 unit PO DAILY 05/13/14 [History Confirmed 12/31/19] Calcium Carb/Vit D3/Minerals [Calcium 600+D Plus [place]] 1 tab PO DAILY [History Confirmed 12/31/19] Multivitamins/Minerals TAB* [Theragran/minerals TAB*] 1 tab PO DAILY 09/22/19 [ History Confirmed 12/31/19] Pravastatin (NF) [Pravachol (NF)] 80 mg PO DAILY 09/22/19 [History Confirmed ] Ubidecarenone [Co Q-10] 400 mg PO DAILY 09/22/19 [History Confirmed 12/31/19] Aspirin 81 mg PO DAILY 12/21/19 [History Confirmed 12/31/19] Irbesartan 75 mg PO DAILY 12/31/19 [History Confirmed 12/31/19] PMH/Surg Hx/FS Hx/Imm Hx Previously Healthy: Yes Endocrine/Hematology History: Reports: Hx Anemia - ON PLAVIX Denies: Hx Diabetes Cardiovascular History: Reports: Hx Hypertension Denies: Hx Congestive Heart Failure, Hx Pacemaker/ICD Comment Only: Other Cardiovascular Problems/Disorders - H/O DEVELOPMENT OF CHF WHILE ON CHEMO PER PT. Respiratory History: Denies: Hx Chronic Obstructive Pulmonary Disease (COPD) History: Reports: Hx Kidney Infection - A YOUNG CHILD Denies: Hx Dialysis, Hx Renal Disease Musculoskeletal History: Denies: Hx Rheumatoid Arthritis, Hx Back Problems, Hx Osteoporosis Sensory History: Denies: Hx Contacts or Glasses, Hx Hearing Aid Opthamlomology History: Denies: Hx Contacts or Glasses Neurological History: Reports: Hx CVA - 2014 Denies: Hx Dementia, Hx Seizures, Other Neuro Impairments/Disorders Psychiatric History: Denies: Hx Panic Disorder - Cancer History Cancer Type, Location and Year: BREAST Hx Chemotherapy: Yes Hx Radiation Therapy: No - Surgical History Surgery Procedure, Year, and Place: BILATERAL MASTECTOMY-2008. AXILLARY LYMPH NODES REMOVED LEFT SIDE. RECONSTRUCTIVE SURGERY. 25 YEARS AGO- TUBAL LIGATION , wrist fracture. Hx Anesthesia Reactions: No - Immunization History Date of Tetanus Vaccine: unk Date of Influenza Vaccine: unk Infectious Disease History: No Infectious Disease History: Denies: Traveled Outside the [place] in Last 30 Days - Family History Known Family History: Positive: Hypertension - Social History Alcohol Use: None Alcohol Amount: 1 DRINK WEEKLY Hx Substance Use: No Substance Use Type: Reports: None Hx Tobacco Use: No Smoking Status (MU): Never Smoked Tobacco Have You Smoked in the Last Year: No Review of Systems Negative: Fever, Chills Positive: Other - reported decrease in platlet and blood count per daughter . Negative: Chest Pain Negative: Shortness Of Breath Negative: Vomiting, Nausea Positive: Weakness. Negative: Headache All Other Systems Reviewed And Are Negative: Yes Physical Exam - Summary Physical Exam Summary: Appearance: Pale, chronically ill appearing, no acute distress, Well-nourished, Skin: Warm, dry, no obvious rash, no petechiae on her pallet or skin Eyes: sclera anicteric, Marked conjunctival pallor ENT: mucous membranes moist, pharynx appears normal Neck: Supple, nontender Respiratory: Clear to auscultation, no signs of respiratory distress Cardiovascular: Normal S1, S2. No murmurs. Normal distal pulses in tibial and radial bilaterally. Abdomen: Soft, nontender, normal active bowel sounds present Musculoskeletal: Normal, Strength/ROM Intact Neurological: A&Ox3, awake and alert, mentation is normal, speech is fluent and appropriate Psychiatric: affect is normal, does not appear anxious or depressed Triage Information Reviewed: Yes Vital Signs On Initial Exam: Initial Vitals Temp Pulse Resp BP Pulse Ox 97.7 F 99 16 147/72 97 12/31/19 21:21 12/31/19 21:21 12/31/19 21:21 12/31/19 21:21 12/31/19 21:21 Vital Signs Reviewed: Yes Procedures - Sedation Patient Received Moderate/Deep Sedation with Procedure: No Diagnostics - Vital Signs Vital Signs Temp Pulse Resp BP Pulse Ox 12/31/19 21:21 97.7 F 99 16 147/72 97 - Laboratory Lab Statement: Any lab studies that have been ordered have been reviewed, and results considered in the medical decision making process. Altered Mental Statu Course/Dx - Course Course Of Treatment: This pt is a 69 Y/O F presenting to [facility] with a CC of weakness that began today. She is currently treated by Dr. Garner for blood cancer per he daughter. She states that she has an injection in her stomach every week for a couple months. She states that she has not been eating well. Her daughter states that she has a decreased platelet count and blood count. Her PE found that she has no petechiae on her pallet or skin and marked conjunctival pallor. Dr. Lynn, oncology, was consulted and she recommended giving a transfusion of blood to the pt at 2200. Following this the daughter was called to gain more information about the pt's case at 2230. She was given a blood transfusion. She was walked at 0323 and was able to ambulate freely and by herself. She will be discharged home with a Dx of sever anemia and severe thrombocytopenia. - Diagnoses Provider Diagnoses: Severe anemia, Severe thrombocytopenia - Critical Care Time Critical Care Statement: Critical care time is provided exclusive of any time spent performing procedures. Discharge ED - Discharge Plan Referrals: Teresita Serra MD [Primary Care Provider] - - Attestation Statements Document Initiated by Scribe: Yes Documenting Scribe: Alejandro Carnes Provider For Whom Scribe is Documenting (Include Credential): Josué Chase MD Scribe Attestation: IAlejandro, scribed for Josué Chase MD on 01/01/20 at 0322. Status of Scribe Document: Ready
[2020-01-01 03:39] VITALS: BP 144/68
== END 2020-01-01 03:35 | disposition home or self-care (01) ==
LOC: ED 21:21
DX: D64.9 Anemia, unspecified (principal); D69.6 Thrombocytopenia, unspecified; R53.1 Weakness; I10 Essential (primary) hypertension; Z86.73 Personal history of transient ischemic attack (TIA), and cerebral infarction without residual deficits; Z85.3 Personal history of malignant neoplasm of breast; Z79.82 Long term (current) use of aspirin; Z79.899 Other long term (current) drug therapy; Z92.21 Personal history of antineoplastic chemotherapy; Z86.79 Personal history of other diseases of the circulatory system
CPT/HCPCS: 36415; 36430; 86078; 86850; 86900; 86901; 86922; 99284; P9040